=== PATIENT | male | born 1960 ===

== ENCOUNTER 2019-12-06 09:07 | Day surgery (SDC) | payer OTHER ==
[~2019-12-06] VITALS: Ht 188 cm; Wt 73.5 kg
[2019-12-06] MEDS ORDERED: Seroquel Xr50 MG (09:54)
[2019-12-06] MEDS ORDERED: DIVA125EC (09:54)
[2019-12-06] MEDS ORDERED: PROAIR DIGIHAL90 MCG (09:54)
--- NOTE | 2019-12-06 11:07 | NUR ---
12/06/19 1107 Lucie Washburn 7CC NORMAL SALINE INJECTED INTO CECUM FOR POLYPECTOMY
--- NOTE | 2019-12-06 13:29 | NUR ---
12/06/19 1329 Lucie Washburn PT MOVING AROUND IN SDU, TRYING TO TAKE OUT IV TO GO HOME. RN TOOK OUT IV. UNABLE TO OBTAIN SECOND BP MEASUREMENT DUE TO PT ANXIOUS AND MOVING AROUND DESPITE REQUESTS TO HOLD STILL. PT HAS DEMENTIA. OK TO DC PER DR VILLATORO. VSS.
== END 2019-12-06 11:25 | disposition home or self-care (01) ==
LOC: ORSCSDS 09:07
PROVIDERS: Internal Medicine Gastroenterology
PROC: 0DBK8ZX Excision of Ascending Colon, Via Natural or Artificial Opening Endoscopic, Diagnostic (ICD-10-PCS; principal; 2019-12-06 10:30)
PROC: 0DBH8ZX Excision of Cecum, Via Natural or Artificial Opening Endoscopic, Diagnostic (ICD-10-PCS; principal; 2019-12-06 10:30)
PROC: 0DBN8ZX Excision of Sigmoid Colon, Via Natural or Artificial Opening Endoscopic, Diagnostic (ICD-10-PCS; principal; 2019-12-06 10:30)
PROC: 0DBC8ZX Excision of Ileocecal Valve, Via Natural or Artificial Opening Endoscopic, Diagnostic (ICD-10-PCS; principal; 2019-12-06 10:30)
DX: Z12.11 Encounter for screening for malignant neoplasm of colon (principal); D12.5 Benign neoplasm of sigmoid colon; D12.2 Benign neoplasm of ascending colon; D12.0 Benign neoplasm of cecum; K57.30 Diverticulosis of large intestine without perforation or abscess without bleeding; K64.8 Other hemorrhoids; Z87.891 Personal history of nicotine dependence
CPT/HCPCS: 88305; J2704; J7120